=== PATIENT | male | born 2005 | race Caucasian/White ===

== ENCOUNTER 2023-12-21 10:27 | Emergency (ER) | payer SELFPAY ==
[2023-12-21 10:27] VITALS: BP 122/85; PULSE 72; RESP 16; TEMP 36.8; O2SAT 100
--- NOTE | 2023-12-21 10:44 | ED.ABDPAIN ---
HPI - Abdominal Pain General Chief Complaint: Abdominal Pain Stated Complaint: abd knot Source: patient Mode of arrival: ambulatory Limitations: no limitations History of Present Illness HPI narrative: 18-year-old male presents to the with a 5 day history of -- tender right inguinal lymphadenopathy. patient denies having multiple partners. He is with his girlfriend for the past 4 months. No lesions of the lower extremities or of his genitals. No skin breakdown. No Skin eruptions. explained to the patient about the possibility of sexually transmitted diseases but the patient does not want to do blood work. Pertinent past history: none Onset (ago): day(s) ( Five days) Pain Consistency: constant Location: other ( right inguinal lymphadenopathy) Quality: aching Radiation: none Exacerbating factors: nothing Relieving factors: nothing Associated symptoms: denies other symptoms Related Data Allergies Allergy/AdvReac Type Severity Reaction Status Date / Time No Known Allergies Allergy Verified 12/21/23 10:32 Review of Systems Review of Systems: All systems reviewed & are unremarkable except as noted in HPI and below Constitutional: Constitutional: Reports as per HPI and Reports no additional constitutional complaints Eyes: Eyes: Reports as per HPI and Reports no additional eye complaints ENT: Reports system reviewed and no additional complaints, except as documented and Reports as per HPI Cardiovascular: Cardiovascular: Reports as per HPI and Reports no additional cardiovascular complaints Respiratory: Respiratory: Reports as per HPI and Reports no additional respiratory complaints Gastrointestinal: Gastrointestinal: Reports as per HPI and Reports no additional gastrointestinal complaints Genitourinary: Genitourinary: Reports no additional male genitourinary complaints and Reports as per HPI Musculoskeletal: Musculoskeletal: Reports no additional musculoskeletal complaints and Reports as per HPI Integumentary/Breasts: Skin/Breast: Reports system reviewed and no additional complaints, except as docu and Reports as per HPI Neurologic: Reports system reviewed and no additional complaints, except as documented and Reports as per HPI Psychiatric: Psychiatric: Reports no additional psychiatric complaints and Reports as per HPI Endocrine: Endocrine: Reports no additional endocrine complaints and Reports as per HPI Hematologic/Lymphatic: Hematologic/Lymphatic: Reports no additional hematologic/lymphatic complaints and Reports as per HPI Allergic/Immunologic: Allergic/Immunologic: Reports no additional allergic/immunologic complaints and Reports as per HPI Exam Const: General: healthy appearing and no acute distress Nutritional Appearance: well nourished Orientation/consciousness: patient oriented x3 Limitations: no limitations HENMT: Ears: external ears normal Face/Nose/Sinus: Normal external nose present Face and sinus: normal facial exam Mouth: Yes Normal oral and palatal mucosa present Throat: posterior oropharynx normal Eyes: Conjunctivae: conjunctivae normal Pupils: Equal, round and reactive pupils present EOM: EOMs intact bilaterally Direct Ophthalmoscopy: no photophobia Neck: Neck: normal visual inspection and no lymphadenopathy Chest: Chest palpation & inspection: normal inspection of the chest Resp: Effort & Inspection: normal respiratory effort Auscultation: clear to auscultation bilaterally Cardio: Rate: regular rate Rhythm: regular rhythm GI: GI Palp: Yes Soft to palpation Auscultation: normal bowel sounds Other: no tenderness/rigidity /rebound. : General: Yes no CVA tenderness Other: Right inguinal lymphadenopathy Back/Spine/Pelvis: Back: no CVA tenderness Skin: General skin exam: normal color Rashes: no rashes Wounds: no wounds Neuro: General: patient oriented x3, moves all extremities, no meningeal signs and no focal motor deficits Cranial nerves: Yes Nystagmus n
[2023-12-21] MEDS: LIDOCAINE HCL 1% LOCAL INJ 10 ML VIAL 2 ML INFILTRATE (12:04)
[2023-12-21] MEDS: cefTRIAXone 250 MG VIAL IM (12:04)
[2023-12-21 12:28] VITALS: BP 102/72; PULSE 61; RESP 16; TEMP 36.9; O2SAT 100
[2023-12-21 12:32] LABS: HIV 1 P24 AG Negative (Negative); HIV 1/2 AB Negative (Negative)
[2023-12-22 08:05] LABS: Chlamydia trachomatis NOT DETECTED (NOT DETECTE); Neisseria gonorrhoeae PCR NOT DETECTED (NOT DETECTE)
[2023-12-23 12:19] LABS: Hepatitis B Core Antibody NON-REACTIVE (NON-REACTIVE); Hepatitis B Surface Antigen NON-REACTIVE (NON-REACTIVE); Hepatitis C Virus Antibody NON-REACTIVE (NON-REACTIVE)
[2023-12-23 13:23] LABS: Hepatitis A Antibody IgM NON-REACTIVE (NON-REACTIVE)
[2023-12-27 13:54] LABS: RPR Screen NON-REACTIVE (NON-REACTIVE)
== END 2023-12-21 12:28 | disposition home or self-care (01) ==
PROVIDERS: Emergency Provider Internal Medicine Critical Care Medicine; PCP Internal Medicine
DX: R59.0 Localized enlarged lymph nodes (principal); Z11.3 Encounter for screening for infections with a predominantly sexual mode of transmission
CPT/HCPCS: 36415; 80074; 86592; 87491; 87591; 87806; 96372; 99283; J0696

== ENCOUNTER 2025-01-22 18:17 | Emergency (ER) | payer MEDICAID, SELFPAY ==
[2025-01-22 18:17] VITALS: BP 144/103; PULSE 83; RESP 20; TEMP 36.7; O2SAT 100
[2025-01-22 18:31] VITALS: BP 131/90
--- NOTE | 2025-01-22 18:31 | ED.GIBLEED ---
HPI - GI Bleed General Chief complaint: GI Bleed Stated complaint: RECTAL BLEEDING Time Seen by Provider: 01/22/25 18:31 Source: patient and family Mode of arrival: ambulatory Limitations: no limitations History of Present Illness HPI Narrative: Patient is a 19-year-old male with bright red blood per rectum/hematochezia after stool for the past 3 days of diarrhea. Initially was having constipation and then took 3 laxatives and proceeded to have diarrhea thereafter. He has been straining when he goes to the bathroom. The blood only occurs when he sits on the toilet and strains. It was on the toilet paper as well. It does stop after wiping. No nausea vomiting. He relates the diarrhea to eating partially cooked chicken luanne 3 days ago. However he also took laxatives on the same time. The stool/bleeding started over the past 3 days with the loose stools. There is associated pain and burning of the rectum at this time. MD complaint: blood on toilet paper and gross hematochezia Onset (ago): day(s) (Three) Pain Consistency: intermittent and now resolved Severity: moderate Relieving factors: other (Finishing bowel movement) Exacerbating factors: bowel movement Context: other (Patient having rectal bleeding only with bowel movements and there is also pain and burning of the rectum) Associated symptoms: denies other symptoms Treatments Prior to Arrival: none Related Data Allergies Allergy/AdvReac Type Severity Reaction Status Date / Time No Known Allergies Allergy Verified 01/22/25 18:28 Review of Systems Review of Systems: All systems reviewed & are unremarkable except as noted in HPI and below Constitutional: Constitutional: Reports no additional constitutional complaints Eyes: Eyes: Reports no additional eye complaints ENT: Reports system reviewed and no additional complaints, except as documented Cardiovascular: Cardiovascular: Reports no additional cardiovascular complaints Respiratory: Respiratory: Reports no additional respiratory complaints Gastrointestinal: Gastrointestinal: Reports no additional gastrointestinal complaints Genitourinary: Genitourinary: Reports no additional male genitourinary complaints Musculoskeletal: Musculoskeletal: Reports no additional musculoskeletal complaints Integumentary/Breasts: Skin/Breast: Reports system reviewed and no additional complaints, except as docu Neurologic: Reports system reviewed and no additional complaints, except as documented Psychiatric: Psychiatric: Reports no additional psychiatric complaints Endocrine: Endocrine: Reports no additional endocrine complaints Hematologic/Lymphatic: Hematologic/Lymphatic: Reports no additional hematologic/lymphatic complaints Allergic/Immunologic: Allergic/Immunologic: Reports no additional allergic/immunologic complaints Exam Const: General: healthy appearing Nutritional Appearance: well nourished Orientation/consciousness: patient oriented x3 HENMT: Head: normal to inspection Ears: external ears normal Face/Nose/Sinus: Normal external nose present Eyes: Conjunctivae: conjunctivae normal Pupils: Equal, round and reactive pupils present EOM: EOMs intact bilaterally Neck: Neck: normal visual inspection Chest: Chest palpation & inspection: normal inspection of the chest Resp: Effort & Inspection: normal respiratory effort and not labored Auscultation: clear to auscultation bilaterally and no crackles Cardio: Rate: regular rate Rhythm: regular rhythm Heart sounds: no murmurs GI: Inspection: non-distended GI Palp: Yes Soft to palpation, No Tenderness to palpation present (GI) and No Guarding due to palpation present (GI) Auscultation: normal bowel sounds Rectal Exam: normal sphincter tone and hemorrhoids Other: Patient has 2 closed hemorrhoids as well as blood at the rectum that is dried; no active bleeding; male grazing examiner present : General: Yes bladder normal to palpation Back/Spine/Pelvis: Back: no CVA tenderness Skin: General skin exam: normal color Rashes: no rashes Wounds: no wounds Neuro: General: patient oriented x3, moves all extremities and no meningeal signs Extrem: General: normal to inspection, no clubbing, cyanosis or edema and no pedal edema Psych: Mental Status: mental status grossly normal Affect: normal affect Attitude: cooperative Course Vital Signs Vital signs: Vital Signs Temperature 36.7 C 01/22/25 18:17 Pulse Rate 83 01/22/25 18:17 Respiratory Rate 20 01/22/25 18:17 Blood Pressure 144/103 H 01/22/25 18:17 Pulse Oximetry 100 01/22/25 18:17 Oxygen Delivery Room Air 01/22/25 18:17 Temperature 36.7 C 01/22/25 18:17 Pulse Rate 74 01/22/25 19:05 Respiratory Rate 18 01/22/25 19:05 Blood Pressure 123/89 01/22/25 19:05 Pulse Oximetry 100 01/22/25 19:05 Oxygen Delivery Room Air 01/22/25 19:05 MDM - GI Bleed MDM Narrative Medical decision making narrative: Patient is a 19-year-old male with rectal bleeding and burning sensation over the past 3 days. Patient has diarrhea after taking laxatives and a questionable chicken luanne. Initially start with examination of the rectum. Lab Data Attestation: I reviewed the patient's lab results. 01/22/25 18:58 01/22/25 18:58 Labs: Lab Results 01/22/25 Range/Units 18:58 WBC 7.6 (4.8-10.8) K/mm3 RBC 5.83 (4.70-6.10) M/mm3 Hgb 16.8 (14.0-18.0) g/dL Hct 46.9 (40.0-54.0) % MCV 80.4 (78.0-102.0) fL MCH 28.8 (27.0-31.0) pg MCHC 35.8 (32-36) g/dL RDW 12.2 (11.6-14.4) % Plt Count 251 (150-420) K/mm3 MPV 9.2 (8.7-11.0) fl Immature Gran % (Auto) 0.1 H (0.0-0.0) % Neut % (Auto) 47.9 L (50.0-70.0) % Lymph % (Auto) 39.2 (18.0-42.0) % Franklin % (Auto) 9.4 (2.0-11.0) % Eos % (Auto) 2.6 (1.0-6.0) % Baso % (Auto) 0.8 (0.0-1.0) % Lymph # (Auto) 2.99 (1.10-4.50) K/mm3 Franklin # (Auto) 0.72 (0.10-0.90) K/mm3 Eos # (Auto) 0.20 (0.02-0.50) K/mm3 Baso # (Auto) 0.06 (0.00-0.10) K/mm3 Abs Immat Gran (auto) 0.01 H (0.00-0.00) K/mm3 Absolute Neuts (auto) 3.65 (1.70-7.20) K/mm3 Absolute Nucleated RBC 0.00 (0.00-0.00) K/mm3 Nucleated RBC % 0.0 (0-0.0) % PT 10.8 (9.50-12.1) Seconds INR 1.0 APTT 27.3 (23.9-30.70) Sec Sodium 142 (137-145) mmol/L Potassium 4.1 (3.4-5.0) mmol/L Chloride 105 (98-107) mmol/L Carbon Dioxide 24 (22-30) mmol/L Anion Gap 13 H (4-12) mmol/L BUN 13 (9-20) mg/dL Creatinine 0.85 (0.7-1.3) mg/dL Estim Creat Clear Calc 108 ml/min Estimated GFR > 60 (59 - ) Glucose 101 (65-110) mg/dL Calculated Osmolality 294 (285-295) mOsm/kg Calcium 10.0 (8.4-10.2) mg/dL Total Bilirubin 0.9 (0.2-1.3) mg/dL AST 37 (17-59) U/L ALT 33 (6-50) U/L Alkaline Phosphatase 62 (38-126) U/L Total Protein > 11.0 H (6.3-8.2) g/dL Albumin 5.3 H (3.5-5.1) g/dL Discharge Plan Discharge Clinical Impression: Hematochezia Hemorrhoids Qualifiers: Hemorrhoid type: unspecified Qualified Code(s): K64.9 - Unspecified hemorrhoids Patient Disposition: Home Condition: Stable Instructions: Hemorrhoids (ED), Rectal Bleeding (ED) Additional Instructions: Please follow-up with primary doctor in the next week. I suggest having a referral to a automotive painter helper to do an upper and lower endoscopy. Discussed with your primary doctor about your protein levels being elevated and further workup needed for that finding. Come back to the ER with any continued or worse symptoms. Patient Language: Yakut Prescriptions: No Action doxycycline hyclate 100 mg capsule 100 mg PO BID Qty: 14 0RF Follow-up/Referrals: Alana,BRAXTON Brumfield [Primary Care Provider] Time of Disposition: 19:26
[2025-01-22 19:04] LABS: Hematocrit 46.9 % (40.0-54.0); Hemoglobin 16.8 g/dL (14.0-18.0); Immature Granulocyte Percent A 0.1 % (0.0-0.0); Lymphocytes Absolute Auto 2.99 K/mm3 (1.10-4.50); Mean Corpuscular HGB Conc 35.8 g/dL (32-36); Mean Corpuscular Hemoglobin 28.8 pg (27.0-31.0); Mean Corpuscular Volume 80.4 fL (78.0-102.0); Nucleated Red Blood Cells Absolute Auto 0.00 K/mm3 (0.00-0.00); Nucleated Red Blood Cells Perc 0.0 % (0-0.0); Platelet Count Result 251 K/mm3 (150-420); Red Blood Count 5.83 M/mm3 (4.70-6.10); White Blood Count 7.6 K/mm3 (4.8-10.8)
[2025-01-22 19:05] VITALS: BP 123/89; PULSE 74; RESP 18; O2SAT 100
[2025-01-22 19:17] LABS: Alanine Aminotransferase 33 U/L (6-50); Albumin Level 5.3 g/dL (3.5-5.1); Alkaline Phosphatase 62 U/L (38-126); Anion Gap 13 mmol/L (4-12); Aspartate Amino Transferase 37 U/L (17-59); Bilirubin,Total 0.9 mg/dL (0.2-1.3); Blood Urea Nitrogen 13 mg/dL (9-20); Calcium 10.0 mg/dL (8.4-10.2); Carbon Dioxide 24 mmol/L (22-30); Chloride 105 mmol/L (98-107); Estimated CRCL calculation 108 ml/min; Estimated Glomerular Filt Rate > 60; Glucose 101 mg/dL (65-110); Osmolality Calculated 294 mOsm/kg (285-295); Potassium 4.1 mmol/L (3.4-5.0); Sodium 142 mmol/L (137-145)
[2025-01-22 19:18] LABS: Total Protein > 11.0 g/dL (6.3-8.2)
[2025-01-22 19:19] LABS: INR 1.0; Partial Thromboplastin Time 27.3 Sec (23.9-30.70); Prothrombin Time 10.8 Seconds (9.50-12.1)
[2025-01-22 19:45] VITALS: BP 121/83; PULSE 74; RESP 18; TEMP 36.8; O2SAT 100
== END 2025-01-22 19:45 | disposition home or self-care (01) ==
PROVIDERS: Emergency Provider Emergency Medicine; PCP Physician Assistant
DX: K92.1 Melena (principal); K64.9 Unspecified hemorrhoids
CPT/HCPCS: 36415; 80053; 85025; 85610; 85730; 99283